=== PATIENT | female | born 1990 | race Caucasian/White ===

== ENCOUNTER → 2016-07-05 | Outpatient (CLI) | payer MEDICAID | LOC: RAD 10:46 | PROVIDERS: ATTEND Physician Assistant | DX: H54.42 Blindness, left eye, normal vision right eye (principal) | CPT/HCPCS: 70553; A9577 ==

== ENCOUNTER 2017-01-29 15:02 | Emergency (ER) | payer OTHER, MEDICAID ==
[2017-01-29] MEDS ORDERED: METOCLOPRAMIDE HCL ORAL SOLN 10 MG/10 ML UDCUP PO ONE (15:20)
[2017-01-29] MEDS ORDERED: MAG HYDROX/AL HYDROX/SIMETH SUSP 30 ML UDCUP PO ONE (15:20)
[2017-01-29] MEDS ORDERED: LIDOCAINE 2% VISCOUS SOLN 20 ML UDCUP PO ONE (15:20)
--- NOTE | 2017-01-29 15:58 | RADIOLOGY REPORT (SQ) ---
EXAM DESCRIPTION: SOFT TISSUE NECK COMPLETED DATE/TIME: 01/29/2017 3:50 pm REASON FOR STUDY: neck pain COMPARISON: None. NUMBER OF VIEWS: Two views. TECHNIQUE: AP and lateral radiographic image of the soft tissues of the neck. LIMITATIONS: None. FINDINGS: EPIGLOTTIS: Normal. Contour normal. Aryepiglottic folds normal. PREVERTEBRAL SOFT TISSUES: Normal. No soft tissue swelling. SUBGLOTTIC AREA: Normal. No narrowing. RETROPHARYNGEAL SPACE: Normal. No soft tissue masses. BONES: No significant findings. LUNG APICES: Normal. OTHER: No radiopaque foreign body. No other significant finding. IMPRESSION: NEGATIVE STUDY OF THE SOFT TISSUES OF THE NECK. TECHNICAL DOCUMENTATION: JOB ID: [id number] [employer]- All Rights Reserved
[2017-01-29 16:57] VITALS: BP 131/84
--- NOTE | 2017-01-29 16:59 | ER Document Report ---
ED General - General Chief Complaint: Neck Problem Stated Complaint: NECK PAIN Time Seen by Provider: 01/29/17 15:20 TRAVEL OUTSIDE OF THE [place] IN LAST 30 DAYS: No - HPI Patient complains to provider of: Neck pain Notes: Patient coming in complaining of neck pain patient states feels like something is trying to check her. Patient otherwise denies any shortness of breath difficulty speaking. Patient denies difficulty swallowing denies eating or swallowing anything that caused her symptoms. Patient states recently got diagnosed with MS concern about possible MS flare. Patient denies fever chills nausea vomiting diarrhea. - Related Data Allergies/Adverse Reactions: acetaminophen [From Percocet] Allergy (Intermediate, Verified 06/17/14 14:47) VOMITING oxycodone HCl [From Percocet] Allergy (Intermediate, Verified 06/17/14 14:47) VOMITING Past Medical History - Social History Smoking Status: Never Smoker Chew tobacco use (# tins/day): No Frequency of alcohol use: None Drug Abuse: None Family History: Reviewed & Not Pertinent - Past Medical History Cardiac Medical History: Reports: Hx Hypertension - With Denies: Hx Coronary Artery Disease, Hx Heart Attack, Hx Heart Murmur Pulmonary Medical History: Denies: Hx Asthma, Hx Bronchitis, Hx COPD, Hx Pneumonia Neurological Medical History: Denies: Hx Cerebrovascular Accident, Hx Seizures Renal/ Medical History: Reports: Hx Ovarian Cysts. Denies: Hx Peritoneal Dialysis GI Medical History: Reports: Hx Gastroesophageal Reflux Disease. Denies: Hx Hiatal Hernia, Hx Ulcer Musculoskeltal Medical History: Denies Hx Arthritis Psychiatric Medical History: Reports: Hx Attention Deficit Hyperactivity Disorder, Hx Bipolar Disorder, Hx Depression Denies: Hx Post Traumatic Stress Disorder, Hx Schizophrenia Infectious Medical History: Denies: Hx HIV Past Surgical History: Reports: Hx Section, Hx Cholecystectomy, Hx Hysterectomy. Denies: Hx Pacemaker - Immunizations Hx Diphtheria, Pertussis, Tetanus Vaccination: Yes - 2011 Review of Systems - Review of Systems Constitutional: No symptoms reported EENT: Other - Neck pain Cardiovascular: No symptoms reported Respiratory: No symptoms reported Gastrointestinal: No symptoms reported Genitourinary: No symptoms reported Female Genitourinary: No symptoms reported Musculoskeletal: No symptoms reported Skin: No symptoms reported Hematologic/Lymphatic: No symptoms reported Neurological/Psychological: No symptoms reported -: Yes All other systems reviewed and negative Physical Exam - Vital signs Vitals: Temp Pulse Resp BP Pulse Ox 98.7 F 80 16 124/86 H 98 01/29/17 15:09 01/29/17 15:09 01/29/17 15:09 01/29/17 15:09 01/29/17 15:09 Interpretation: Normal - General General appearance: Appears well, Alert - HEENT Head: Normocephalic, Atraumatic Eyes: Normal Pupils: PERRL - Respiratory Respiratory status: No respiratory distress Chest status: Nontender Breath sounds: Normal Chest palpation: Normal - Cardiovascular Rhythm: Regular Heart sounds: Normal auscultation Murmur: No - Abdominal Inspection: Normal Distension: No distension Bowel sounds: Normal Tenderness: Nontender Organomegaly: No organomegaly - Back Back: Normal, Nontender - Extremities General upper extremity: Normal inspection, Nontender, Normal color, Normal ROM , Normal temperature General lower extremity: Normal inspection, Nontender, Normal color, Normal ROM , Normal temperature, Normal weight bearing. No: Clari's sign - Neurological Neuro grossly intact: Yes Cognition: Normal Orientation: AAOx4 Prabha Coma Scale Eye Opening: Spontaneous [place] Coma Scale Verbal: Oriented Prabha Coma Scale Motor: Obeys Commands Prabha Coma Scale Total: 15 Speech: Normal Motor strength normal: LUE, RUE, LLE, RLE Sensory: Normal - Psychological Associated symptoms: Normal affect, Normal mood - Skin Skin Temperature: Warm Skin Moisture: Dry Skin Color: Normal Course - Re-evaluation Re-evalutation: 01/29/17 20:25 Minimal relief with GI cocktail. Soft tissue of the neck does not reveal any signs of foreign body. Unclear etiology for the patient's pain patient upon reevaluation does admit to history of GERD and is not on any acid reducing medication will start the patient on Prilosec recommend to try for 1 week see if symptoms resolve patient states understanding patient also states understanding follow-up with your PCP for possible ENT referral. - Vital Signs Vital signs: Temp Pulse Resp BP Pulse Ox 97.8 F 76 20 131/84 H 99 01/29/17 16:47 01/29/17 16:47 01/29/17 16:47 01/29/17 16:47 01/29/17 16:47 Discharge - Discharge Clinical Impression: Globus hystericus Condition: Good Disposition: HOME, SELF-CARE Additional Instructions: At this time your x-ray of her neck does not show any significant pathology. I am concerned that the pain unit may be due to her acid reflux. Please use the omeprazole as directed highly recommend he follow-up with your primary care physician if you are not getting any better in 1 week for possible ENT referral. Prescriptions: Omeprazole 20 mg PO BID #14 tablet. Referrals: DOLORES READ PA-C [Primary Care Provider] - Follow up as needed
== END 2017-01-29 17:03 | disposition home or self-care (01) ==
LOC: ER 15:02
DX: F45.8 Other somatoform disorders (principal); M54.2 Cervicalgia
CPT/HCPCS: 99283; 70360; J3490 ×3

== ENCOUNTER → 2017-04-03 | Outpatient (CLI) | payer MEDICAID ==
--- NOTE | 2017-04-03 11:43 | RADIOLOGY REPORT (SQ) ---
EXAM DESCRIPTION: MRI HEAD COMBO COMPLETED DATE/TIME: 04/03/2017 11:17 am REASON FOR STUDY: MULTIPLE SCLEROSIS G35 MULTIPLE SCLEROSIS COMPARISON: 07/05/2016 TECHNIQUE: Multiplanar imaging includes noncontrasted T1, T2, FLAIR, diffusion with ADC map and post gadolinium contrast T1 sequences. Images stored on PACS. CONTRAST TYPE AND DOSE: 20 mL Multihance. RENAL FUNCTION: None required. The patient is less than 50 years old. LIMITATIONS: None. FINDINGS: Previously described white matter lesions are stable. There is a new lesion measuring abo ut 1 cm just lateral to the left occipital horn. None of the lesions enhance. No involvement of the posterior fossa. No evidence of acute infarct. No hemorrhage or extra-axial fluid collection. Opt ic nerves are normal. IMPRESSION: New quiescent white matter lesion left parietal lobe. No evidence of active demyelinati on. EVIDENCE OF ACUTE STROKE: NO. TECHNICAL DOCUMENTATION: JOB ID: [id number] [employer]- All Rights Reserved
== END ==
LOC: RAD 09:46
PROVIDERS: ATTEND Psychiatry & Neurology Neurology
DX: G35 Multiple sclerosis (principal)
CPT/HCPCS: 70553; A9577

== ENCOUNTER → 2017-04-04 | Outpatient (CLI) | payer MEDICAID ==
--- NOTE | 2017-04-05 13:14 | RADIOLOGY REPORT (SQ) ---
EXAM DESCRIPTION: MRI CERVICAL SPINE WITHOUT COMPLETED DATE/TIME: 04/04/2017 5:46 pm REASON FOR STUDY: MULTIPLE SCLEROSIS G35 MULTIPLE SCLEROSIS COMPARISON: None. TECHNIQUE: Sagittal and Axial imaging includes T1, T2, STIR and gradient echo sequences. LIMITATIONS: None. FINDINGS: ALIGNMENT: Normal. VERTEBRAE: Intact. BONE MARROW: Normal. No marrow replacement or reactive changes. DISCS: Normal. No significant abnormal signal or loss of height. HARDWARE: None in the spine. CORD AND BASE OF BRAIN: Normal in size and signal intensity. SOFT TISSUES: No soft tissue masses. C1-C2: No significant spinal stenosis. C2-C3: No significant spinal stenosis or exit foraminal stenosis. C3-C4: Disc osteophyte complex slightly asymmetric right with mild narrowing of the right exit forami na. C4-C5: None C5-C6: No significant spinal stenosis or exit foraminal stenosis. C6-C7: Disc osteophyte complex with mild narrowing of the exit foramina. C7-T1: No significant spinal stenosis or exit foraminal stenosis. UPPER THORACIC: Incompletely imaged. No significant spinal stenosis or exit foraminal stenosis. OTHER: No other significant finding. IMPRESSION: Mild spondylosis. Mild narrowing of the exit foramina C6-7 and right exit foramina C3-4 . TECHNICAL DOCUMENTATION: JOB ID: [id number] [employer]- All Rights Reserved
== END ==
LOC: RAD 17:00
PROVIDERS: ATTEND Psychiatry & Neurology Neurology
DX: G35 Multiple sclerosis (principal)
CPT/HCPCS: 72141

== ENCOUNTER 2017-04-14 22:05 | Emergency (ER) | payer MEDICAID ==
[2017-04-15] MEDS ORDERED: KETOROLAC TROMETHAMINE 60 MG/2 ML SDV IM ONE (00:17)
[2017-04-15] MEDS ORDERED: METOCLOPRAMIDE HCL 10 MG TABLET PO ONE (00:18)
[2017-04-15] MEDS ORDERED: ONDANSETRON 4 MG TAB.RAPDIS PO ONE (00:18)
--- NOTE | 2017-04-15 00:20 | ER Document Report ---
ED Headache - General Chief Complaint: Headache Stated Complaint: HEADACHE Time Seen by Provider: 04/15/17 00:07 Notes: Patient is a 26-year-old female comes emergency department for chief complaint of a headache that started this morning. She states that she has on Topamax for migraine headaches, she took her Topamax and 400 mg of ibuprofen but she still has a headache. She denies injury, fever, neck stiffness, she states her whole head is throbbing, denies any particular location to the pain, denies visual changes, denies nausea or vomiting. She states she gets intermittent tingling sensations over her body but does not feel any at this time. TRAVEL OUTSIDE OF THE [place] IN LAST 30 DAYS: No - Related Data Allergies/Adverse Reactions: acetaminophen [From Percocet] Allergy (Intermediate, Verified 04/15/17 00:48) VOMITING oxycodone HCl [From Percocet] Allergy (Intermediate, Verified 04/15/17 00:48) VOMITING Past Medical History - General Information source: Patient - Social History Smoking Status: Never Smoker Drug Abuse: None Lives with: Family Family History: Reviewed & Not Pertinent - Past Medical History Cardiac Medical History: Reports: Hx Hypertension - With Denies: Hx Coronary Artery Disease, Hx Heart Attack, Hx Heart Murmur Pulmonary Medical History: Denies: Hx Asthma, Hx Bronchitis, Hx COPD, Hx Pneumonia Neurological Medical History: Denies: Hx Cerebrovascular Accident, Hx Seizures Renal/ Medical History: Reports: Hx Ovarian Cysts. Denies: Hx Peritoneal Dialysis GI Medical History: Reports: Hx Gastroesophageal Reflux Disease. Denies: Hx Hiatal Hernia, Hx Ulcer Musculoskeltal Medical History: Denies Hx Arthritis Psychiatric Medical History: Reports: Hx Attention Deficit Hyperactivity Disorder, Hx Bipolar Disorder, Hx Depression Denies: Hx Post Traumatic Stress Disorder, Hx Schizophrenia Infectious Medical History: Denies: Hx HIV Past Surgical History: Reports: Hx Section, Hx Cholecystectomy, Hx Hysterectomy. Denies: Hx Pacemaker - Immunizations Hx Diphtheria, Pertussis, Tetanus Vaccination: Yes - 2011 Review of Systems - Review of Systems Constitutional: No symptoms reported EENT: No symptoms reported Cardiovascular: No symptoms reported Respiratory: No symptoms reported Gastrointestinal: No symptoms reported Genitourinary: No symptoms reported Female Genitourinary: No symptoms reported Musculoskeletal: No symptoms reported Skin: No symptoms reported Hematologic/Lymphatic: No symptoms reported Neurological/Psychological: See HPI Physical Exam - Vital signs Vitals: Temp Pulse Resp BP Pulse Ox 97.8 F 93 18 132/83 H 99 04/14/17 22:24 04/14/17 22:24 04/14/17 22:24 04/14/17 22:24 04/14/17 22:24 Interpretation: Normal - General General appearance: Appears well, Alert - HEENT Head: Normocephalic, Atraumatic Eyes: Normal Conjunctiva: Normal Extraocular movements intact: Yes Eyelashes: Normal Pupils: PERRL Sinus: Normal Nasal: Normal Mouth/Lips: Normal Mucous membranes: Normal Pharynx: Normal Neck: Normal - Respiratory Respiratory status: No respiratory distress Chest status: Nontender Breath sounds: Normal. No: Decreased air movement Chest palpation: Normal - Cardiovascular Rhythm: Regular Heart sounds: Normal auscultation Murmur: No - Abdominal Inspection: Normal Distension: No distension Bowel sounds: Normal Tenderness: Nontender. No: Tender, Guarding Organomegaly: No organomegaly - Back Back: Normal, Nontender - Extremities General upper extremity: Normal inspection, Nontender, Normal color, Normal ROM , Normal temperature General lower extremity: Normal inspection, Nontender, Normal color, Normal ROM , Normal temperature, Normal weight bearing. No: Clari's sign - Neurological Neuro grossly intact: Yes Cognition: Normal Orientation: AAOx4 Prabha Coma Scale Eye Opening: Spontaneous [place] Coma Scale Verbal: Oriented Prabha Coma Scale Motor: Obeys Commands Prabha Coma Scale Total: 15 Speech: Normal Motor strength normal: LUE, RUE, LLE, RLE Sensory: Normal - Psychological Associated symptoms: Normal affect, Normal mood - Skin Skin Temperature: Warm Skin Moisture: Dry Skin Color: Normal Course - Re-evaluation Re-evalutation: Patient well-appearing, normal neurological exam, very talkative. Unremarkable vital signs. No nuchal rigidity, no fever, no trauma. Patient requests nonsedating approach to medication, states she wants to drive home and she cannot be given anything sedating. She was given Toradol, Reglan, Zofran. On reevaluation patient continues to be well-appearing, she states her headache is gone and she is ready to leave. She has good neurology follow-up. Discharged with return precautions. Patient states understanding and agreement. - Vital Signs Vital signs: Temp Pulse Resp BP Pulse Ox 97.8 F 74 18 124/76 99 04/14/17 22:24 04/15/17 01:44 04/15/17 01:44 04/15/17 01:44 04/14/17 22:24 Discharge - Discharge Clinical Impression: Headache Qualifiers: Headache type: unspecified Headache chronicity pattern: acute headache Intractability: not intractable Qualified Code(s): R51 - Headache Condition: Stable Disposition: HOME, SELF-CARE Additional Instructions: Your symptoms and response to treatment are consistent with a migraine. Stay hydrated, continue current medications, follow up with your Neurologist. Return to the ED for any concerning symptoms - returned headache, vomiting, fever, etc. Referrals: DOLORES READ PA-C [Primary Care Provider] - Follow up as needed
[2017-04-15 01:45] VITALS: BP 124/76
== END 2017-04-15 01:45 | disposition home or self-care (01) ==
LOC: ER 22:05
DX: R51 Headache (principal); I10 Essential (primary) hypertension; Z88.6 Allergy status to analgesic agent; Z90.49 Acquired absence of other specified parts of digestive tract; Z90.710 Acquired absence of both cervix and uterus
CPT/HCPCS: 99283; 96372; J1885; S0119; J3490

== ENCOUNTER → 2017-08-05 | Outpatient (CLI) | payer MEDICAID ==
--- NOTE | 2017-08-05 15:02 | RADIOLOGY REPORT (SQ) ---
EXAM DESCRIPTION: MRI LUMBAR SPINE WITHOUT COMPLETED DATE/TIME: 08/05/2017 10:11 am REASON FOR STUDY: LOW BACK PAIN M54.5 LOW BACK PAIN COMPARISON: CT abdomen pelvis 02/25/2015 TECHNIQUE: Sagittal and Axial imaging includes T1, T2, STIR and gradient echo sequences. Coronal T2/ HASTE imaging. LIMITATIONS: None. FINDINGS: VISUALIZED UPPER ABDOMEN: Limited evaluation. No acute or suspicious findings suggested. SEGMENTATION: No transitional anatomy. The lowest well-developed disc space is labeled L5-S1. ALIGNMENT: Anatomic. VERTEBRAE: Intact. BONE MARROW: Normal. No marrow replacement or reactive changes. DISC SIGNAL: Mild decreased T2 weighted intervertebral disc signal at L5-S1 POSTERIOR ELEMENTS: Generally intact. No pars defect evident. HARDWARE: None in the spine. CORD AND CONUS: Conus is at the T12-L1 level. Along the dorsal and leftward aspect of the spinal canal from the top of T11 through the inferior end plate of T12, a CSF signal cyst is present in the dorsal aspect of the spinal canal, extending out th e left T11-12 and T12-L1 neural foramina. This is extradural extramedullary, mildly displacing the t hecal sac towards the right. There is chronic appearing pressure erosion with thinning of the bilateral T11 lamina and chronic bernice earing widening of the left T11-12 neural foramen. This most likely represents an arachnoid cyst within the spinal canal. These findings are best shown on axial T2 images 2 through 15, and sagittal T2 images 8-12. Prior CT abdomen pelvis from 02/26/20 15 was reviewed. This finding was present at that time, similar appearance. SOFT TISSUES: No aortic aneurysm seen. No bulky retroperitoneal adenopathy or mass. No paraspinal mas s or fluid. T10-11: At the upper most edge of the field of view incompletely included on the scan T11-12: No significant disc protrusion/herniation or right foraminal narrowing. Arachnoid cyst in t he posterior aspect of the spinal canal extending out the left T11-12 neural foramen. T12-L1: No disc protrusion/herniation. No central or right foraminal narrowing. Inferior edge of t he arachnoid cyst in the dorsal spinal canal extends out the left T12-L1 neural foramen. L1-L2: Unremarkable L2-L3: Unremarkable aside from mild facet hypertrophy L3-L4: Unremarkable aside from mild facet hypertrophy L4-L5: Unremarkable aside from mild facet hypertrophy L5-S1: Unremarkable aside from mild facet hypertrophy SACRUM: Visualized upper sacrum intact. OTHER: No other significant findings. IMPRESSION: Incidental finding of an arachnoid cyst in the spinal canal at the T11 and T12 vertebral body levels. Mild multilevel lumbar facet arthropathy without significant central or foraminal encroachment TECHNICAL DOCUMENTATION: JOB ID: [id number] [employer]- All Rights Reserved Reading location - IP/workstation name: [email or web address]
== END ==
LOC: RAD 07-28 15:43
PROVIDERS: ATTEND Physician Assistant
DX: M54.5 Low back pain (principal)
CPT/HCPCS: 72148

== ENCOUNTER → 2018-01-20 | Outpatient (CLI) | payer MEDICAID ==
--- NOTE | 2018-01-21 15:31 | RADIOLOGY REPORT (SQ) ---
EXAM DESCRIPTION: MRI HEAD COMBO COMPLETED DATE/TIME: 01/21/2018 9:40 am REASON FOR STUDY: MULTIPLE SCLEROSIS G35 MULTIPLE SCLEROSIS COMPARISON: 04/03/2017 TECHNIQUE: Multiplanar imaging includes noncontrasted T1, T2, FLAIR, diffusion with ADC map and post gadolinium contrast T1 sequences. Images stored on PACS. CONTRAST TYPE AND DOSE: 10 cc mL Dotarem. RENAL FUNCTION: None required. The patient is less than 50 years old. LIMITATIONS: None. FINDINGS: ANATOMY: No anomalies. Normal vascular flow voids. Pituitary fossa normal. CSF SPACES: Normal in size and contour. No hemorrhage. CEREBRUM: Scattered subcentimeter oval and round foci of increased signal FLAIR sequence in the periv entricular white matter mostly stable. 1 new subcentimeter lesion in the right parietal lobe on imag e 18. None of the lesions enhance. POSTERIOR FOSSA: No signal alteration. No hemorrhage. No edema, masses, or mass effect. Internal ernestina tory canals, cerebellopontine angles, mastoids normal. No enhancing lesions. No abnormal enhancement post contrast. DIFFUSION IMAGING: Negative for acute or subacute infarction. ORBITS: No masses. Globes normal. PARANASAL SINUSES: No fluid levels. Mucosa normal. OTHER: No other significant finding. IMPRESSION: New quiescent white matter lesion in the right parietal lobe. No evidence of active dem yelination. EVIDENCE OF ACUTE STROKE: NO. TECHNICAL DOCUMENTATION: JOB ID: [id number] [employer]- All Rights Reserved Reading location - IP/workstation name: [email or web address]
--- NOTE | 2018-01-21 15:34 | RADIOLOGY REPORT (SQ) ---
EXAM DESCRIPTION: MRI CERVICAL SPINE COMBO COMPLETED DATE/TIME: 01/21/2018 9:40 am REASON FOR STUDY: MULTIPLE SCLEROSIS G35 MULTIPLE SCLEROSIS COMPARISON: None. TECHNIQUE: Sagittal and Axial imaging includes T1, T2, STIR and gradient echo sequences. T1 post ana olinium sequences. CONTRAST TYPE AND DOSE: 15 mL Prohance. RENAL FUNCTION: None required. The patient is less than 50 years old. LIMITATIONS: Excessive motion artifact. Patient declined contrast 01/20/2018 and returned on 01/21/2018 for post-contrast sequences. FINDINGS: Motion artifact limits evaluation. No obvious demyelinating lesions in the cervical spine . No active demyelination. Mild spinal stenosis at C6-7 due to bulging disc. No significant marrow abnormality. IMPRESSION: No evidence of active demyelination. COMMENT: None. TECHNICAL DOCUMENTATION: JOB ID: [id number] [employer]- All Rights Reserved Reading location - IP/workstation name: [email or web address]
== END ==
LOC: RAD 10:15
PROVIDERS: ATTEND Physician Assistant
DX: G35 Multiple sclerosis (principal)
CPT/HCPCS: 70551; 70553; 72141; 72156

== ENCOUNTER → 2018-01-21 | Outpatient (CLI) | payer MEDICAID ==
--- NOTE | 2018-01-22 08:18 | RADIOLOGY REPORT (SQ) ---
EXAM DESCRIPTION: MRI THORACIC SPINE COMBO COMPLETED DATE/TIME: 01/21/2018 9:39 am REASON FOR STUDY: MS G35 MULTIPLE SCLEROSIS COMPARISON: MRI cervical spine 01/20/2018 MRI lumbar spine 08/05/2017 CT abdomen pelvis 02/25/2015 TECHNIQUE: Sagittal and Axial imaging includes T1, T2, STIR and gradient echo sequences. T1 post ga dolinium sequences. CONTRAST TYPE AND DOSE: 15 mL Dotarem. RENAL FUNCTION: None required. The patient is less than 50 years old. LIMITATIONS: None. FINDINGS: A stable benign appearing CSF signal arachnoid cyst is present in the dorsal and leftward aspect of the spinal canal, from the mid T11 level through the T12-L1 level. This cyst measures 6.3 cm craniocaudad by 3 cm transverse by 1.4 cm AP, and may actually be a perineural cyst off the left T 11 nerve root. There is benign bony remodeling of the left lamina of T11 with enlargement of the lef t T11-12 and left T12-L1 neural foramen. Coarse benign-appearing 1 cm calcification along the arachn oid cyst posterior edge. Overall, this is unchanged from CT exam 02/25/2015. On the postcontrast T1 weighted images, there is no abnormal nerve root or conus enhancement. LOCALIZER: No worrisome findings. ALIGNMENT: Normal. VERTEBRAE: Intact. BONE MARROW: Benign hemangioma in the T4 vertebral body. Benign focal fat along the anterior inferio r corner of T6, T7, and T8 HARDWARE: None in the spine. CORD: Tiny focus of increased intrinsic cord signal along signal at the T11 level unchanged from MRI 08/05/2017. No abnormal thoracic cord or conus enhancement SOFT TISSUES: No soft tissue masses. THORACIC DISCS T1-T12: Small posterior disc bulge T7-8 disc, without central or foraminal encroachmen t LOWER CERVICAL: Incompletely imaged. No significant spinal stenosis or exit foraminal stenosis. UPPER LUMBAR: Incompletely imaged. No significant spinal stenosis or exit foraminal stenosis. ENHANCEMENT: No abnormal conus, nerve root, or vertebral body enhancement. OTHER: No other significant finding. IMPRESSION: Stable lower thoracic spinal canal arachnoid cyst from the mid T11 level through the T12 -L1 disc space level. Small central disc bulge at T7-8 without central canal or foraminal encroachment. TECHNICAL DOCUMENTATION: JOB ID: [id number] [employer]- All Rights Reserved Reading location - IP/workstation name: [email or web address]
== END ==
LOC: RAD 08:30
PROVIDERS: ATTEND Physician Assistant
DX: G35 Multiple sclerosis (principal); G93.0 Cerebral cysts
CPT/HCPCS: 72157; A9576

== ENCOUNTER 2018-06-07 09:01 | Emergency (ER) | payer MEDICAID ==
[2018-06-07] MEDS ORDERED: KETOROLAC TROMETHAMINE 60 MG/2 ML SDV IM ONE (09:45)
--- NOTE | 2018-06-07 09:50 | ER Document Report ---
HPI - HPI Time Seen by Provider: 06/07/18 09:36 Pain Level: 5 Notes: Patient is a 27-year-old female with history of MS who presents to the emergency department with bilateral leg pain. Patient reports she is currently being seen at [facility] and is scheduled for nerve conduction test on 06/27/18. Patient reports she takes gabapentin 600 mg at night. She reports that her pain has increased over the last 3-5 days. Patient denies any nausea, vomiting, diarrhea or fever. Patient reports this pain is not any different than previous MS flareups it is just worsening. - CONSTITUTIONAL Constitutional: DENIES: Fever, Chills - REPRODUCTIVE LMP: hysterectomy 2013 Reproductive: DENIES: : - MUSCULOSKELETAL Musculoskeletal: REPORTS: Extremity pain - MS 08/17 Past Medical History - General Information source: Patient - Social History Smoking Status: Never Smoker Chew tobacco use (# tins/day): No Frequency of alcohol use: None Family History: Reviewed & Not Pertinent Patient has suicidal ideation: No Patient has homicidal ideation: No - Past Medical History Cardiac Medical History: Reports: Hx Hypertension - With Denies: Hx Coronary Artery Disease, Hx Heart Attack, Hx Heart Murmur Pulmonary Medical History: Denies: Hx Asthma, Hx Bronchitis, Hx COPD, Hx Pneumonia Neurological Medical History: Denies: Hx Cerebrovascular Accident, Hx Seizures Renal/ Medical History: Reports: Hx Ovarian Cysts. Denies: Hx Peritoneal Dialysis GI Medical History: Reports: Hx Gastroesophageal Reflux Disease. Denies: Hx Hiatal Hernia, Hx Ulcer Musculoskeletal Medical History: Denies Hx Arthritis, Reports Hx Multiple Sclerosis Psychiatric Medical History: Reports: Hx Attention Deficit Hyperactivity D isorder, Hx Bipolar Disorder, Hx Depression Denies: Hx Post Traumatic Stress Disorder, Hx Schizophrenia Infectious Medical History: Denies: Hx HIV Past Surgical History: Reports: Hx Section, Hx Cholecystectomy, Hx Hysterectomy. Denies: Hx Pacemaker - Immunizations Hx Diphtheria, Pertussis, Tetanus Vaccination: Yes - 2011 Vertical Provider Document - CONSTITUTIONAL Notes: PHYSICAL EXAMINATION: GENERAL: Well-appearing, well-nourished and in no acute distress. HEAD: Atraumatic, normocephalic. EYES: Pupils equal round extraocular movements intact, conjunctiva are normal. ENT: Nares patent NECK: Normal range of motion LUNGS: No respiratory distress Musculoskeletal: Normal range of motion NEUROLOGICAL: Normal speech, normal gait. PSYCH: Normal mood, normal affect. SKIN: Warm, Dry, normal turgor, no rashes or lesions noted. - INFECTION CONTROL TRAVEL OUTSIDE OF THE [place] IN LAST 30 DAYS: No Course - Re-evaluation Re-evalutation: Patient reports symptoms of MS flareup. Will give patient IM Toradol and a short course of p.o. Toradol. Patient agreeable to this plan. Discharge - Discharge Clinical Impression: Multiple sclerosis exacerbation Condition: Stable Disposition: HOME, SELF-CARE Additional Instructions: Please take medication as prescribed. Please keep all follow-up appointments with primary care, pain management and your specialty doctors at [facility]. Prescriptions: Ketorolac Tromethamine [Toradol 10 mg Tablet] 10 mg PO Q6HP PRN #20 tablet PRN Reason: Referrals: ELLI HOOK PA-C [NO LOCAL MD] - Follow up as needed
== END 2018-06-07 09:55 | disposition home or self-care (01) ==
LOC: ER 09:01
DX: G35 Multiple sclerosis (principal); Z79.899 Other long term (current) drug therapy
CPT/HCPCS: 99283; 96372; J1885

== ENCOUNTER 2018-07-02 12:08 | Emergency (ER) | payer MEDICAID ==
[2018-07-02] MEDS ORDERED: KETOROLAC TROMETHAMINE 60 MG/2 ML SDV IM ONE (13:14)
--- NOTE | 2018-07-02 13:23 | ER Document Report ---
ED Extremity Problem, Lower - General Chief Complaint: Leg Pain Stated Complaint: LEG AND ARM PAIN Time Seen by Provider: 07/02/18 13:00 Primary Care Provider: DOLORES READ PA-C [Primary Care Provider] - Follow up tomorrow Mode of Arrival: Ambulatory Information source: Patient Notes: 27-year-old female presented to ED for complaint of bilateral leg and arm pain. She has a history of multiple sclerosis and has been on pain management for a long time. She states that she was on gabapentin and it was helping her pain. She states she came into the ED on 07 June and was given Toradol which did help with her pain. She states she followed up with her pain management and they changed her gabapentin to Lyrica and that is still not helping her pain. She states she called her pain management they were not able to see her until next week so she called her primary care doctor and they told her to go to urgent care on Monday. She states urgent care gave her a Toradol injection and told her to follow-up with her primary care doctor and pain management. She states she called pain management and primary care today and they were not able to see her so she called the urgent care and they were rude to her so she came to the emergency room. I have reviewed with patient all of her history and the pain. She did state that the Toradol did help each time and that she was not allowed to take steroids. She states she has not been taking any ibuprofen and that she had some [place] from a dental pain and it did not do any good so she took it to the police department and they got rid of it. TRAVEL OUTSIDE OF THE [place] IN LAST 30 DAYS: No - HPI Patient complains to provider of: Pain. No: Injury Occurred: Other - Chronic Onset/Duration: Persistent Quality of pain: Achy, Sharp Severity: Severe Pain Level: 5 Recent injury: No Associated symptoms: Painful ambulation Exacerbated by: Hanging down, Movement, Walking Relieved by: Nothing - Related Data Allergies/Adverse Reactions: acetaminophen [From Percocet] Allergy (Intermediate, Verified 07/02/18 12:09) VOMITING oxycodone HCl [From Percocet] Allergy (Intermediate, Verified 07/02/18 12:09) VOMITING Past Medical History - General Information source: Patient - Social History Smoking Status: Never Smoker Cigarette use (# per day): No Chew tobacco use (# tins/day): No Smoking Education Provided: No Frequency of alcohol use: None Drug Abuse: None Lives with: Spouse/Significant other - Significant other and children Family History: Reviewed & Not Pertinent Patient has suicidal ideation: No Patient has homicidal ideation: No - Past Medical History Cardiac Medical History: Reports: Hx Hypertension - With Pulmonary Medical History: Reports: None EENT Medical History: Reports: None Neurological Medical History: Reports: Other - Multiple sclerosis Endocrine Medical History: Reports: None Renal/ Medical History: Reports: Hx Ovarian Cysts Malignancy Medical History: Reports: None GI Medical History: Reports: Hx Gastroesophageal Reflux Disease Musculoskeletal Medical History: Reports Hx Multiple Sclerosis Skin Medical History: Reports None Psychiatric Medical History: Reports: Hx Attention Deficit Hyperactivity Disorder, Hx Bipolar Disorder, Hx Depression Traumatic Medical History: Reports: None Infectious Medical History: Reports: None Past Surgical History: Reports: Hx Section, Hx Cholecystectomy, Hx Hysterectomy - Immunizations Hx Diphtheria, Pertussis, Tetanus Vaccination: Yes - 2011 Review of Systems - Review of Systems Constitutional: No symptoms reported EENT: No symptoms reported Cardiovascular: No symptoms reported Respiratory: No symptoms reported Gastrointestinal: No symptoms reported Genitourinary: No symptoms reported Female Genitourinary: No symptoms reported Musculoskeletal: Muscle pain, Muscle stiffness, Other - Pain in both arms and both legs constantly Skin: No symptoms reported Hematologic/Lymphatic: No symptoms reported Neurological/Psychological: No symptoms reported -: Yes All other systems reviewed and negative Physical Exam - Vital signs Vitals: Temp Pulse Resp BP Pulse Ox 98.8 F 90 16 128/83 H 98 07/02/18 12:39 07/02/18 12:39 07/02/18 12:39 07/02/18 12:39 07/02/18 12:39 Interpretation: Normal - General General appearance: Appears well, Alert - HEENT Head: Normocephalic, Atraumatic Eyes: Normal Pupils: PERRL - Respiratory Respiratory status: No respiratory distress Chest status: Nontender Breath sounds: Normal Chest palpation: Normal - Cardiovascular Rhythm: Regular Heart sounds: Normal auscultation Murmur: No - Abdominal Inspection: Normal Distension: No distension Bowel sounds: Normal Tenderness: Nontender Organomegaly: No organomegaly - Back Back: Normal, Nontender - Extremities General upper extremity: Normal inspection, Nontender, Normal color, Normal ROM, Normal temperature. No: Normal strength - Patient states is her normal strength but she does have normal range of motion General lower extremity: Normal inspection, Nontender, Normal color, Normal ROM, Normal temperature, Normal weight bearing. No: Clari's sign - Neurological Neuro grossly intact: Yes Cognition: Normal Orientation: AAOx4 [place] Coma Scale Eye Opening: Spontaneous [place] Coma Scale Verbal: Oriented Prabha Coma Scale Motor: Obeys Commands Prabha Coma Scale Total: 15 Speech: Normal Motor strength normal: LUE, RUE, LLE, RLE Sensory: Normal - Psychological Associated symptoms: Normal affect, Normal mood - Skin Skin Temperature: Warm Skin Moisture: Dry Skin Color: Normal Course - Re-evaluation Re-evalutation: 07/02/18 15:31 Patient was treated with Toradol injection and encouraged to use her ibuprofen this evening and tomorrow morning and to follow-up with her primary care doctor by telephone today and schedule an appointment for tomorrow. I did review with patient the fact that we cannot give narcotics in the emergency room for chronic pain but she stated that she had Peter tried [place] and it did not help anyway. Patient was encouraged to follow-up with her pain management as soon as she can. - Vital Signs Vital signs: Temp Pulse Resp BP Pulse Ox 98.6 F 86 15 126/82 H 100 07/02/18 13:43 07/02/18 13:43 07/02/18 13:43 07/02/18 13:43 07/02/18 13:43 Discharge - Discharge Clinical Impression: Bilateral leg pain, Bilateral arm pain, Multiple sclerosis Chronic pain Qualifiers: Chronic pain type: other chronic pain Qualified Code(s): G89.29 - Other chronic pain Condition: Stable Disposition: HOME, SELF-CARE Additional Instructions: You were seen today for continued pain from your multiple sclerosis to your arms and legs. 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 You state that she did follow-up after your last visit and they changed you from gabapentin to Lyrica and this is not helping your pain. Please take your medications that are ordered by your pain specialist until you can follow-up with them. Toradol Injection You have been given an injection of ketorolac tromethamine (Toradol). This is an excellent, safe drug for pain control. It also has potent antiinflammatory action. You should have significant pain relief within about one hour. Toradol is not addicting and is non-sedating. It does not interfere with driving or work. Call or return if you develop itching, hives, shortness of breath, or rash. You stated that you get a Toradol injection yesterday and this did help your pain. You have been given a Toradol injection today for your pain and given instruction to use your ibuprofen you have at home every 8 hours until you can follow-up with your primary doctor tomorrow. Ibuprofen Ibuprofen is an excellent, safe drug for pain control. In addition, it has potent antiinflammatory effects which are beneficial, especially in the treatment of injuries, arthritis, or tendonitis. It's best to take ibuprofen with food. Persons with ulcer disease or allergy to aspirin should notify their physician of this before taking ibuprofen. Take the medication exactly as prescribed. Don't take additional doses unless instructed to do so by your doctor. If you develop wheezing, shortness of breath, hives, faintness, stomach pain, vomiting, or dark black stools, return for re-evaluation at once. FOLLOW-UP CARE: If you have been referred to a physician for follow-up care, call the physicians office for an appointment as you were instructed or within the next two days. If you experience worsening or a significant change in your symptoms, notify the physician immediately or return to the Emergency Department at any time for re-evaluation. Forms: Elevated Blood Pressure Referrals: DOLORES READ PA-C [Primary Care Provider] - Follow up tomorrow
[2018-07-02 13:48] VITALS: BP 126/82
== END 2018-07-02 13:48 | disposition home or self-care (01) ==
LOC: ER 12:08
DX: G89.29 Other chronic pain (principal); M79.18 Myalgia, other site; Z79.899 Other long term (current) drug therapy; G35 Multiple sclerosis; Z88.6 Allergy status to analgesic agent; Z88.5 Allergy status to narcotic agent
CPT/HCPCS: 99283; 96372; J1885

== ENCOUNTER → 2018-07-06 | Outpatient (CLI) | payer MEDICAID ==
[2018-07-06 09:24] LABS: ABSOLUTE EOSINOPHILS # (AUTO) 0.2 10^3/uL (0.0-0.6); ABSOLUTE LYMPHOCYTES (AUTO) 2.3 10^3/uL (0.5-4.7); ABSOLUTE MONOCYTES (AUTO) 0.5 10^3/uL (0.1-1.4); BASOPHILS % (AUTO) 0.5 % (0-2); HEMATOCRIT 35.4 % (36.0-47.0); HEMOGLOBIN 12.4 g/dL (12.0-15.5); LYMPHOCYTES % (AUTO) 33.1 % (13-45); MEAN CORPUSCULAR HEMOGLOBIN 27.3 pg (27.0-33.4); MEAN CORPUSCULAR HGB CONC 34.9 g/dL (32.0-36.0); MEAN CORPUSCULAR VOLUME 78 fl (80-97); MONOCYTES % (AUTO) 7.4 % (3-13); PLATELET COUNT 308 10^3/uL (150-450); RED BLOOD COUNT 4.53 10^6/uL (3.72-5.28); RED CELL DISTRIBUTION WIDTH 13.7 % (11.5-14.0); TOTAL CELLS COUNTED % (AUTO) 100 %; WHITE BLOOD COUNT 7.1 10^3/uL (4.0-10.5)
[2018-07-06 09:47] LABS: ALANINE AMINOTRANSFERASE 18 U/L (9-52); ALBUMIN 4.7 g/dL (3.5-5.0); ALKALINE PHOSPHATASE 64 U/L (38-126); ANION GAP 8 (5-19); ASPARTATE AMINO TRANSFERASE 22 U/L (14-36); BILIRUBIN,DIRECT 0.3 mg/dL (0.0-0.4); BILIRUBIN,TOTAL 0.4 mg/dL (0.2-1.3); BLOOD UREA NITROGEN 13 mg/dL (7-20); CALCIUM 9.6 mg/dL (8.4-10.2); CARBON DIOXIDE 29 mmol/L (22-30); CHLORIDE 104 mmol/L (98-107); CHOLESTEROL 232.48 mg/dL (0-200); GLUCOSE 93 mg/dL (75-110); POTASSIUM 4.7 mmol/L (3.6-5.0); TOTAL PROTEIN 7.3 g/dL (6.3-8.2); TRIGLYCERIDES 201 mg/dL (<150)
[2018-07-06 09:58] LABS: DIRECT LDL 169 mg/dL (<100)
[2018-07-06 10:02] LABS: FREE T4 (FREE THYROXINE) 1.13 ng/dL (0.78-2.19)
[2018-07-06 10:03] LABS: VLDL CHOLESTEROL 40.2 mg/dL (10-31)
[2018-07-06 10:16] LABS: THYROID STIMULATING HORMONE 1.85 uIU/mL (0.47-4.68)
== END ==
LOC: OD 08:35
PROVIDERS: ATTEND Nurse Practitioner Psychiatric/Mental Health
DX: Z79.899 Other long term (current) drug therapy (principal); F41.1 Generalized anxiety disorder
CPT/HCPCS: 36415; 80053; 80061; 83036; 84439; 84443; 85025

== ENCOUNTER 2019-02-12 15:36 | Emergency (ER) | payer MEDICAID ==
[2019-02-12 15:51] VITALS: BP 124/76
[2019-02-12] MEDS ORDERED: KETOROLAC TROMETHAMINE 60 MG/2 ML SDV IM ONE (16:18)
--- NOTE | 2019-02-12 16:24 | ER Document Report ---
HPI - HPI Patient complains to provider of: Joint pain left side history MS Time Seen by Provider: 02/12/19 16:15 Onset: Last week Onset/Duration: Intermittent Quality of pain: Achy, Sharp Severity: Moderate Pain Level: 3 Context: 28-year-old female presents to ED for joint muscle pain from her MS. She states her current left side of her body. She states that she gets Medicare at home but sometimes it is not time for her shot and flu. Gets pain and she needs Toradol shot. She states she cannot have steroids because it will interfere w ith her MS shot. She states she has been treated like she was taking narcotics but has not which she states that she just needs relief from the pain. I explained to her that I could not give her narcotics but I could give her the Toradol injection if that would help. She stated yes that would help. Associated Symptoms: Other Exacerbated by: Movement Relieved by: Denies Similar symptoms previously: Yes Recently seen / treated by doctor: Yes - ROS ROS below otherwise negative: Yes - CONSTITUTIONAL Constitutional: DENIES: Fever, Chills - EENT EENT: DENIES: Sore Throat, Ear Pain, Nasal Drainage-Clear, Nasal Drainage- Purulent, Congestion, Eye problems - NEURO Neurology: DENIES: Headache, Weakness, Vision blurred, Dizzinesss / Vertigo - CARDIOVASCULAR Cardiovascular: DENIES: Chest pain - RESPIRATORY Respiratory: DENIES: Trouble Breathing, Coughing - GASTROINTESTINAL Gastrointestinal: DENIES: Abdominal Pain, Nausea, Patient vomiting, Diarrhea, Constipation, Black / Bloody Stools - URINARY Urinary: DENIES: Dysuria, Urgency, Frequency - REPRODUCTIVE Reproductive: DENIES: :, Postmenopausal, Abnormal bleeding / discharge - MUSCULOSKELETAL Musculoskeletal: REPORTS: Extremity pain, Back Pain, Neck Pain, Swelling Notes: Joint pain and muscle pain on the left side from her multiple sclerosis - DERM Skin Color: Normal Skin Problems: None Past Medical History - General Information source: Patient - Social History Smoking Status: Unknown if Ever Smoked Frequency of alcohol use: None Drug Abuse: None Lives with: Family Family History: Reviewed & Not Pertinent Patient has suicidal ideation: No Patient has homicidal ideation: No - Past Medical History Cardiac Medical History: Reports: Hx Hypertension - With Pulmonary Medical History: Reports: None EENT Medical History: Reports: None Neurological Medical History: Reports: None Renal/ Medical History: Reports: Hx Ovarian Cysts Malignancy Medical History: Reports: None GI Medical History: Reports: Hx Gastroesophageal Reflux Disease Musculoskeletal Medical History: Reports Hx Multiple Sclerosis, Reports Hx Musculoskeletal Trauma Skin Medical History: Reports None Psychiatric Medical History: Reports: Hx Attention Deficit Hyperactivity Disorder, Hx Bipolar Disorder, Hx Depression Traumatic Medical History: Reports: None Infectious Medical History: Reports: None Past Surgical History: Reports: Hx Section, Hx Cholecystectomy, Hx Hysterectomy - Immunizations Hx Diphtheria, Pertussis, Tetanus Vaccination: Yes - 2012 Vertical Provider Document - CONSTITUTIONAL Agree With Documented VS: Yes Exam Limitations: No Limitations General Appearance: WD/WN, No Apparent Distress - INFECTION CONTROL TRAVEL OUTSIDE OF THE [place] IN LAST 30 DAYS: No - HEENT HEENT: Atraumatic, Normal ENT Exam, Normocephalic, PERRLA - NECK Neck: Normal Inspection, Supple - RESPIRATORY Respiratory: Breath Sounds Normal, No Respiratory Distress, Chest Non-Tender - CARDIOVASCULAR Cardiovascular: Regular Rate, Regular Rhythm - GI/ABDOMEN Gastrointestinal: Abdomen Soft, Abdomen Non-Tender, No Organomegaly, Normal Bowel Sounds - BACK Back: Normal Inspection - MUSCULOSKELETAL/EXTREMETIES Musculoskeletal/Extremeties: MAEW, FROM, Non-Tender - NEURO Level of Consciousness: Awake, Alert, Appropriate Motor/Sensory: No Motor Deficit, Positive Babinski's Sign - DERM Integumentary: Warm, Dry, No Rash Course - Re-evaluation Re-evalutation: 02/12/19 16:29 Patient has a history of multiple sclerosis and has medication she takes for the multiple sclerosis but in between shots sometimes she needs some pain medicines. She states she is on a nerve pain medicine and takes shots for the multiple sclerosis but sometimes she needs Toradol. She states she came today to get the Toradol shot. - Vital Signs Vital signs: Temp Pulse Resp BP Pulse Ox 98.1 F 88 18 124/76 99 02/12/19 15:48 02/12/19 15:48 02/12/19 15:48 02/12/19 15:48 02/12/19 15:48 Discharge - Discharge Clinical Impression: Joint pain due to MS Condition: Stable Disposition: HOME, SELF-CARE Additional Instructions: Arthralgia Arthralgia is pain in the joints. We use the word arthralgia to describe joint pain where there's no history of injury, no known joint disease, and the joints are normal to examination. Arthralgia can be a symptom of an acute illness, such as influenza, hepatitis, or serum sickness. Sometimes the joint pain comes before any other symptoms. Arthralgia can also be an early symptom of joint disease, such as rheumatoid arthritis or lupus. If arthralgia is accompanied by an acute illness that explains the joint pain, such as mononucleosis, no further testing needs to be done. When there's no clear reason for the pain, tests may be done to see if there's an inflammatory disease of the joints. The usual treatment is anti-inflammatory medication, such as ibuprofen. Joint aches can be soothed with a heating pad or hot compress. If joints remain painful more than a few days, you'll need testing and followup. Return if a joint becomes swollen, red, or severely painful. Myalagia (Muscle Pain) Myalgia is pain in the muscles. We use the word myalgia to describe muscle pain where there's no history of injury, no known muscle disease, and the muscles are normal to examination. Myalgias can be a symptom of an acute illness, such as influenza, hepatitis, or any viral illness, especially with fever. Sometimes the muscle pain comes before any other symptoms. Myalgia can also be an early symptom of inflammatory muscle disease, such as lupus. If myalgia is accompanied by an acute illness that explains the muscle pain, then no further testing needs to be done. When there's no clear reason for the pain, tests may be done to see if there's an inflammatory or other disease of the muscles. The usual treatment for myalgias is anti-inflammatory medication, such as ibuprofen. Muscle aches may be soothed with a heating pad or hot compress. If muscles remain painful for more than a few days, you'll need testing and followup. Return if a muscle becomes swollen, red, or severely painful. Toradol Injection You have been given an injection of ketorolac tromethamine (Toradol). This is an excellent, safe drug for pain control. It also has potent antiinflammatory action. You should have significant pain relief within about one hour. Toradol is not addicting and is non-sedating. It does not interfere with driving or work. Call or return if you develop itching, hives, shortness of breath, or rash. FOLLOW-UP CARE: If you have been referred to a physician for follow-up care, call the physicians office for an appointment as you were instructed or within the next two days. If you experience worsening or a significant change in your symptoms, notify the physician immediately or return to the Emergency Department at any time for re-evaluation. Referrals: HADLEY COVINGTON NP [NO LOCAL MD] - Follow up in 3-5 days
== END 2019-02-12 16:38 | disposition home or self-care (01) ==
LOC: ER 15:36
DX: G35 Multiple sclerosis (principal); Z79.899 Other long term (current) drug therapy; M25.50 Pain in unspecified joint; M79.10 Myalgia, unspecified site; M54.9 Dorsalgia, unspecified; M54.2 Cervicalgia; R60.9 Edema, unspecified
CPT/HCPCS: J1885

== ENCOUNTER → 2019-03-13 | Outpatient (CLI) | payer MEDICAID ==
--- NOTE | 2019-03-13 13:01 | EKG REPORT ---
SEVERITY:- NORMAL ECG - SINUS RHYTHM : Confirmed by: Gus Dumas MD 13-Mar-2019 13:00:38
== END ==
LOC: OD 08:59
PROVIDERS: ATTEND Nurse Practitioner Family
DX: R00.2 Palpitations (principal)
CPT/HCPCS: 93005; 93010

== ENCOUNTER 2019-06-14 11:18 | Emergency (ER) | payer MEDICAID | END 2019-06-14 12:45 | disposition left against medical advice (07) | LOC: ER 11:18 | DX: Z53.20 Procedure and treatment not carried out because of patient's decision for unspecified reasons (principal) ==

== ENCOUNTER → 2019-06-14 | Outpatient (CLI) | payer MEDICAID ==
[2019-06-14 08:26] LABS: ABSOLUTE EOSINOPHILS # (AUTO) 0.1 10^3/uL (0.0-0.6); ABSOLUTE LYMPHOCYTES (AUTO) 1.5 10^3/uL (0.5-4.7); ABSOLUTE MONOCYTES (AUTO) 0.4 10^3/uL (0.1-1.4); ABSOLUTE NEUT (AUTO) 2.9 10^3/uL (1.7-8.2); BASOPHILS % (AUTO) 0.9 % (0-2); EOSINOPHILS % (AUTO) 2.9 % (0-6); HEMATOCRIT 35.6 % (36.0-47.0); HEMOGLOBIN 12.4 g/dL (12.0-15.5); LYMPHOCYTES % (AUTO) 30.3 % (13-45); MEAN CORPUSCULAR HEMOGLOBIN 26.3 pg (27.0-33.4); MEAN CORPUSCULAR HGB CONC 34.7 g/dL (32.0-36.0); MEAN CORPUSCULAR VOLUME 76 fl (80-97); MONOCYTES % (AUTO) 7.3 % (3-13); PLATELET COUNT 344 10^3/uL (150-450); RED CELL DISTRIBUTION WIDTH 15.3 % (11.5-14.0); SEGMENTED NEUTROPHILS % (AUTO) 58.6 % (42-78); TOTAL CELLS COUNTED % (AUTO) 100 %; WHITE BLOOD COUNT 4.9 10^3/uL (4.0-10.5)
[2019-06-14 08:50] LABS: ALBUMIN 4.5 g/dL (3.5-5.0); ALKALINE PHOSPHATASE 69 U/L (38-126); ANION GAP 10 (5-19); ASPARTATE AMINO TRANSFERASE 25 U/L (14-36); BILIRUBIN,DIRECT 0.4 mg/dL (0.0-0.4); BILIRUBIN,TOTAL 0.5 mg/dL (0.2-1.3); BLOOD UREA NITROGEN 10 mg/dL (7-20); CALCIUM 9.8 mg/dL (8.4-10.2); CARBON DIOXIDE 28 mmol/L (22-30); CHLORIDE 103 mmol/L (98-107); CHOLESTEROL 182.95 mg/dL (0-200); GLUCOSE 102 mg/dL (75-110); POTASSIUM 4.7 mmol/L (3.6-5.0); TOTAL PROTEIN 7.5 g/dL (6.3-8.2); TRIGLYCERIDES 230 mg/dL (<150)
[2019-06-14 09:01] LABS: DIRECT LDL 138 mg/dL (<100)
[2019-06-14 09:03] LABS: FREE T4 (FREE THYROXINE) 1.02 ng/dL (0.78-2.19)
[2019-06-14 09:17] LABS: THYROID STIMULATING HORMONE 1.33 uIU/mL (0.47-4.68)
== END ==
LOC: OD 07:03
PROVIDERS: ATTEND Nurse Practitioner Psychiatric/Mental Health
DX: F41.1 Generalized anxiety disorder (principal); Z79.899 Other long term (current) drug therapy
CPT/HCPCS: 36415; 80053; 80061; 83036; 83525; 84439; 84443; 85025

== ENCOUNTER → 2019-06-18 | Outpatient (CLI) | payer MEDICAID ==
--- NOTE | 2019-06-18 16:24 | EKG REPORT ---
SEVERITY:- ABNORMAL ECG - SINUS TACHYCARDIA BORDERLINE Q WAVES IN INFERIOR LEADS INFERIOR Q WAVES, PROBABLY NORMAL VARIATION BORDERLINE T ABNORMALITIES, ANTERIOR LEADS : Confirmed by: Bridget Zepeda MD 18-Jun-2019 16:24:00
== END ==
LOC: OD 11:51
PROVIDERS: ATTEND Nurse Practitioner Family
DX: R55 Syncope and collapse (principal)
CPT/HCPCS: 93005; 93010

== ENCOUNTER → 2019-06-21 | Outpatient (CLI) | payer MEDICAID ==
[2019-06-21 14:15] LABS: A TYPE INFLUENZA AG NEGATIVE (NEGATIVE); B INFLUENZA AG NEGATIVE (NEGATIVE)
== END ==
LOC: OD 13:32
PROVIDERS: ATTEND Nurse Practitioner Family
DX: R50.9 Fever, unspecified (principal)
CPT/HCPCS: 87804

== ENCOUNTER → 2019-11-04 | Outpatient (CLI) | payer MEDICAID ==
[2019-11-04 16:38] LABS: IRON(TIBC) 52.8 ug/dL (37-170)
== END ==
LOC: OD 14:51
DX: G25.81 Restless legs syndrome (principal)
CPT/HCPCS: 36415; 82728; 83540; 83550

== ENCOUNTER 2020-01-10 13:10 | Emergency (ER) | payer MEDICAID ==
[2020-01-10 13:28] VITALS: BP 124/78
--- NOTE | 2020-01-10 13:34 | ER Document Report ---
ED Medical Screen (RME) - General Chief Complaint: Chest Pain Stated Complaint: CHEST PAIN Time Seen by Provider: 01/10/20 13:26 Primary Care Provider: KARISSA MELENDEZ [Primary Care Provider] - Follow up as needed Information source: Patient Notes: Patient presents complaining of midsternal chest pain that she describes as sharp and worse with exertion. Patient states she has been having the pain for the past week although it has started to worsen. Patient does complain of some lightheadedness. Patient denies any cough or cold symptoms. No nausea vomiting or diarrhea. Patient states she does have MS although this is not symptoms typical of her MS flares. Patient denies any history of PE or DVT. I have greeted and performed a rapid initial assessment of this patient. A comprehensive ED assessment and evaluation of the patient, analysis of test results and completion of the medical decision making process will be conducted by additional ED providers. TRAVEL OUTSIDE OF THE [place] IN LAST 30 DAYS: No - Related Data Allergies/Adverse Reactions: acetaminophen [From Percocet] Allergy (Intermediate, Verified 07/02/18 12:09) VOMITING oxycodone HCl [From Percocet] Allergy (Intermediate, Verified 07/02/18 12:09) VOMITING Past Medical History - Past Medical History Cardiac Medical History: Reports: Hx Hypertension - With Denies: Hx Coronary Artery Disease, Hx Heart Attack, Hx Heart Murmur Pulmonary Medical History: Denies: Hx Asthma, Hx Bronchitis, Hx COPD, Hx Pneumonia Neurological Medical History: Denies: Hx Cerebrovascular Accident, Hx Seizures Renal/ Medical History: Reports: Hx Ovarian Cysts. Denies: Hx Peritoneal Dialysis GI Medical History: Reports: Hx Gastroesophageal Reflux Disease. Denies: Hx Hiatal Hernia, Hx Ulcer Musculoskeltal Medical History: Denies Hx Arthritis, Reports Hx Multiple Sclerosis, Reports Hx Musculoskeletal Trauma Psychiatric Medical History: Reports: Hx Attention Deficit Hyperactivity Disorder, Hx Bipolar Disorder, Hx Depression Denies: Hx Post Traumatic Stress Disorder, Hx Schizophrenia Infectious Medical History: Denies: Hx HIV Past Surgical History: Reports: Hx Section, Hx Cholecystectomy, Hx Hysterectomy. Denies: Hx Pacemaker - Immunizations Hx Diphtheria, Pertussis, Tetanus Vaccination: Yes - 2011 Physical Exam - Vital signs Vitals: Temp Pulse Resp BP Pulse Ox 98.1 F 79 18 124/78 98 01/10/20 13:26 01/10/20 13:26 01/10/20 13:26 01/10/20 13:01/10/20 13:26 - Respiratory Respiratory status: No respiratory distress Chest status: Nontender Breath sounds: Normal - Cardiovascular Rhythm: Regular Heart sounds: S1 appreciated, S2 appreciated Course - Vital Signs Vital signs: Temp Pulse Resp BP Pulse Ox 98.1 F 79 18 124/78 98 01/10/20 13:26 01/10/20 13:01/10/20 13:01/10/20 13:01/10/20 13:26 Doctor's Discharge - Discharge Referrals: LOCALMD,NO [Primary Care Provider] - Follow up as needed
[2020-01-10 14:09] LABS: ABSOLUTE EOSINOPHILS # (AUTO) 0.2 10^3/uL (0.0-0.6); ABSOLUTE LYMPHOCYTES (AUTO) 1.2 10^3/uL (0.5-4.7); ABSOLUTE MONOCYTES (AUTO) 0.4 10^3/uL (0.1-1.4); EOSINOPHILS % (AUTO) 3.5 % (0-6); HEMATOCRIT 35.4 % (36.0-47.0); LYMPHOCYTES % (AUTO) 24.6 % (13-45); MEAN CORPUSCULAR HEMOGLOBIN 26.5 pg (27.0-33.4); MEAN CORPUSCULAR VOLUME 78 fl (80-97); MONOCYTES % (AUTO) 9.1 % (3-13); PLATELET COUNT 299 10^3/uL (150-450); RED BLOOD COUNT 4.54 10^6/uL (3.72-5.28); RED CELL DISTRIBUTION WIDTH 14.9 % (11.5-14.0); SEGMENTED NEUTROPHILS % (AUTO) 61.8 % (42-78); TOTAL CELLS COUNTED % (AUTO) 100 %; WHITE BLOOD COUNT 4.8 10^3/uL (4.0-10.5)
--- NOTE | 2020-01-10 14:19 | RADIOLOGY REPORT (SQ) ---
EXAM DESCRIPTION: CHEST SINGLE VIEW IMAGES COMPLETED DATE/TIME: 01/10/2020 2:10 pm REASON FOR STUDY: cp COMPARISON: None. EXAM PARAMETERS: NUMBER OF VIEWS: One view. TECHNIQUE: An AP view of the chest was obtained. RADIATION DOSE: NA LIMITATIONS: None. FINDINGS: LUNGS AND PLEURA: No consolidation, pleural effusion or pneumothorax. MEDIASTINUM AND HILAR STRUCTURES: No mediastinal or hilar contour abnormality. HEART AND VASCULAR STRUCTURES: The cardiac silhouette and pulmonary vasculature are within normal begum its. BONES: No acute findings. HARDWARE: None in the chest. OTHER: No other finding. IMPRESSION: No acute cardiopulmonary process. TECHNICAL DOCUMENTATION: JOB ID: [id number] 2010 [employer]- All Rights Reserved Reading location - IP/workstation name: [email or web address]
[2020-01-10 14:30] LABS: ALBUMIN 4.5 g/dL (3.5-5.0); ALKALINE PHOSPHATASE 67 U/L (38-126); ANION GAP 9 (5-19); ASPARTATE AMINO TRANSFERASE 28 U/L (14-36); BILIRUBIN,DIRECT 0.2 mg/dL (0.0-0.4); BILIRUBIN,TOTAL 0.4 mg/dL (0.2-1.3); BLOOD UREA NITROGEN 6 mg/dL (7-20); CALCIUM 9.8 mg/dL (8.4-10.2); CARBON DIOXIDE 31 mmol/L (22-30); CHLORIDE 101 mmol/L (98-107); CREATINE KINASE 122 U/L (30-135); GLUCOSE 96 mg/dL (75-110); POTASSIUM 4.8 mmol/L (3.6-5.0)
--- NOTE | 2020-01-10 18:18 | ER Document Report ---
ED General - General Chief Complaint: Chest Pain Stated Complaint: CHEST PAIN Time Seen by Provider: 01/10/20 13:26 Primary Care Provider: KARISSA MELENDEZ [NO LOCAL MD] - Follow up as needed TRAVEL OUTSIDE OF THE [place] IN LAST 30 DAYS: No - HPI Notes: Chief complaint: Chest pain History of present illness: 29-year-old female with history of chronic pain syndrome and multiple sclerosis on multiple medications presents today com plaining of 4 to 5-day history of intermittent sharp nonradiating anterior central chest pain aggravated by movement and touching the area. No dyspnea. No hemoptysis. No fever, chills or sputum production. 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 She is recently establish care with a pain management clinic although they are currently not giving her any narcotic medications. She denies any known history of thromboembolic disease and there is no history of this in her family. She is not diabetic. She is not hypertensive. She is a non-smoker. She has no history of hyperlipidemia. She denies any use cocaine. Family history is negative for CAD. HEART Score: HISTORY 0 ECG 0 AGE 0 RISK FACTORS 0 TROPONIN 0 TOTAL:0 If HEART score is < 3 AND both tronponin measurments are normal, the 30 day risk of a major adverse cardiac event (all-cause mortality, myocardia infarction or need for coronary revscularization) is < 1% (Sensitivity 100%, NPV 100%). Review of past records here shows that she has had many visits for wide variety of pain complaints. - Related Data Allergies/Adverse Reactions: acetaminophen [From Percocet] Allergy (Intermediate, Verified 07/02/18 12:09) VOMITING oxycodone HCl [From Percocet] Allergy (Intermediate, Verified 07/02/18 12:09) VOMITING Past Medical History - General Information source: Patient, [facility] Records - Social History Smoking Status: Former Smoker Chew tobacco use (# tins/day): No Frequency of alcohol use: None Drug Abuse: None Family History: Reviewed & Not Pertinent - Past Medical History Cardiac Medical History: Denies: Hx Coronary Artery Disease, Hx DVT, Hx Heart Attack, Hx Hypertension, Hx Pulmonary Embolism, Hx Heart Murmur Pulmonary Medical History: Denies: Hx Asthma, Hx Bronchitis, Hx COPD, Hx Pneumonia Neurological Medical History: Denies: Hx Cerebrovascular Accident, Hx Seizures Renal/ Medical History: Reports: Hx Ovarian Cysts. Denies: Hx Peritoneal Rosita lysis GI Medical History: Reports: Hx Gastroesophageal Reflux Disease. Denies: Hx Hiatal Hernia, Hx Ulcer Musculoskeletal Medical History: Denies Hx Arthritis, Reports Hx Multiple Sclerosis, Reports Hx Musculoskeletal Trauma Psychiatric Medical History: Reports: Hx Attention Deficit Hyperactivity Disorder, Hx Bipolar Disorder, Hx Depression Denies: Hx Post Traumatic Stress Disorder, Hx Schizophrenia Infectious Medical History: Denies: Hx HIV Past Surgical History: Reports: Hx Section, Hx Cholecystectomy, Hx Hysterectomy. Denies: Hx Pacemaker - Immunizations Hx Diphtheria, Pertussis, Tetanus Vaccination: Yes - 2011 Review of Systems - Review of Systems Notes: Constitutional: Negative for fever. HENT: Negative for sore throat. Eyes: Negative for visual changes. Cardiovascular: As per HPI. Respiratory: Negative for shortness of breath. Gastrointestinal: Negative for abdominal pain, vomiting or diarrhea. Genitourinary: Negative for dysuria. Musculoskeletal: Chronic back pain. Skin: Negative for rash. Neurological: Negative for headaches, weakness or numbness. 10 point ROS negative except as marked above and in HPI. Physical Exam - Vital signs Vitals: Temp Pulse Resp BP Pulse Ox 98.1 F 79 18 124/78 98 01/10/20 13:26 01/10/20 13:26 01/10/20 13:26 01/10/20 13:26 01/10/20 13:26 - Notes Notes: GENERAL: Moderately obese female approximately stated age appearing in no acute distress. SKIN: Good turgor no rashes. HEAD: Normocephalic atraumatic. EYES: PERRLA. EOMI. Conjunctivae and sclerae clear. EARS: CANALS AND TMS CLEAR. NOSE: CLEAR. MOUTH: Moist mucosa. Good dentition. No stridor or edema. No drooling. NECK: Supple. No masses or thyromegaly. No adenopathy. Carotids 2+ without bruits. No JVD. BACK: Symmetrical without tenderness. CHEST: Exquisite tenderness of anterior chest along costochondral junctions bilaterally which exactly reproduces her symptoms. Respirations unlabored. Breath sounds clear and symmetrical. HEART: Regular rhythm. No murmur gallop or rub. ABDOMEN: Soft nontender without masses, organomegaly or rebound. Bowel sounds normally active. No bruits. GENITALIA: Deferred. EXTREMITIES: No edema. No calf tenderness. Cap refill less than 1.5 seconds. Dorsalis pedis and posterior tibial pulses 3+ and symmetrical. NEUROLOGICAL: GCS 15. Alert and oriented x3. Normal gait. Fluent speech. Cranial nerves II through XII intact. Sensorimotor and cerebellar normal. Normal tone. PSYCHIATRIC: Flat affect. Course - Re-evaluation Re-evalutation: 01/10/20 18:19 This appears to be chest wall pain. I am comfortable discharging patient for outpatient follow-up with her primary care physician. Findings, clinical impression and plan of treatment have been discussed with patient/family. Understanding of current findings and recommendations has been acknowledged by them and there is agreement regarding disposition and follow-up. - Vital Signs Vital signs: Temp Pulse Resp BP Pulse Ox 98.1 F 79 18 124/78 98 01/10/20 13:26 01/10/20 13:26 01/10/20 13:26 01/10/20 13:26 01/10/20 13:26 - Laboratory Result Diagrams: 01/10/20 13:59 01/10/20 13:59 Laboratory results interpreted by me: 01/10/20 01/10/20 13:59 13:59 Hct 35.4 L MCV 78 L MCH 26.5 L RDW 14.9 H Carbon Dioxide 31 H BUN 6 L ALT 36 H - Diagnostic Test Radiology reviewed: Reports reviewed - Chest x-ray per radiologist: No active disease - EKG Interpretation by Me Additional EKG results interpreted by me: 01/10/20 18:18 Twelve-lead EKG from 1320 hrs. reviewed by me contemporaneously showing normal sinus rhythm with a rate of 75 and a QRS axis of +4 degrees and normal intervals. No acute ST or T wave changes are present. There is no significant interval change compared with prior study of 06/18/2019. Interpretation normal EKG. Indication for current study: Chest pain. Discharge - Discharge Clinical Impression: Chest wall pain Condition: Stable Disposition: HOME, SELF-CARE Additional Instructions: Continue current medications. Tylenol as needed. Return here as needed for new or worsening symptoms: Pain that is worsening or unimproved Increasing shortness of breath Vomiting blood Uncontrolled vomiting High fever or shaking chills Overall worsening Referrals: LOCALMD,NO [NO LOCAL MD] - Follow up as needed [facility] [Provider Group] - Follow up as needed
--- NOTE | 2020-01-10 23:37 | EKG REPORT ---
SEVERITY:- BORDERLINE ECG - SINUS RHYTHM BORDERLINE T ABNORMALITIES, ANTERIOR LEADS : Confirmed by: Bridget Zepeda MD 10-Jan-2020 23:36:31
== END 2020-01-10 18:53 | disposition home or self-care (01) ==
LOC: ER 13:10
DX: R07.89 Other chest pain (principal); I34.0 Nonrheumatic mitral (valve) insufficiency; E66.9 Obesity, unspecified; G35 Multiple sclerosis; M54.9 Dorsalgia, unspecified; G89.4 Chronic pain syndrome; Z79.899 Other long term (current) drug therapy; Z87.891 Personal history of nicotine dependence; Z88.8 Allergy status to other drugs, medicaments and biological substances; Z88.6 Allergy status to analgesic agent; Z88.5 Allergy status to narcotic agent
CPT/HCPCS: 36415; 71045; 80053; 82550; 83735; 84484; 85025; 93005; 93010; 99285

== ENCOUNTER → 2020-02-05 | Outpatient (CLI) | payer MEDICAID ==
--- NOTE | 2020-02-06 13:13 | RADIOLOGY REPORT (SQ) ---
EXAM DESCRIPTION: U/S THYROID/SFT TISS HD NECK IMAGES COMPLETED DATE/TIME: 02/05/2020 5:26 pm REASON FOR STUDY: (E07.89)OTHER SPECIFIED DISORDERS OF THYROID E07.89 OTHER SPECIFIED DISORDERS OF THYROID COMPARISON: None. TECHNIQUE: Dynamic and static sorensen-scale images acquired of the thyroid gland. Selected additional c olor/power Doppler images recorded. All images stored to PACS. LIMITATIONS: None. FINDINGS: RIGHT LOBE: Normal size, 4.8 cm Homogeneous echotexture. No cystic or solid masses. LEFT LOBE: Normal size, 4.9 cm Homogeneous echotexture. No cystic or solid masses. ISTHMUS: Slightly prominent, 6 mm PE Homogeneous echotexture. No cystic or solid masses. OTHER: There 2 submandibular lymph nodes on the left. The larger measures 14 mm in largest diameter. These have normal fatty karen. IMPRESSION: Normal thyroid gland. There are 2 submandibular lymph nodes with benign appearance. TECHNICAL DOCUMENTATION: JOB ID: [id number] 2010 [employer]- All Rights Reserved Reading location - IP/workstation name: [email or web address]
== END ==
LOC: RAD 16:23
PROVIDERS: ATTEND Physician Assistant
DX: E07.89 Other specified disorders of thyroid (principal)
CPT/HCPCS: 76536

== ENCOUNTER 2020-03-05 11:54 | Emergency (ER) | payer MEDICAID ==
--- NOTE | 2020-03-05 12:14 | ER Document Report ---
ED Medical Screen (RME) - General Chief Complaint: Shortness Of Breath Stated Complaint: SHORTNESS OF BREATH/CHILLS/FEVERISH/TIRED Time Seen by Provider: 03/05/20 12:05 Primary Care Provider: DOLORES READ PA-C [Primary Care Provider] - Follow up as needed Mode of Arrival: Ambulatory Information source: Patient Notes: 29-year-old female with history of anxiety and MS presenting to the emergency department with chief complaint of cough x1 week, congestion x2 weeks, shortness of breath over the last 2 days with increased work of breathing. She reports associated chills and nausea. Generalized weakness. She is not very forthcoming with information. Initially she told the triage PCT while getting vitals that her symptoms were likely due to her MS infusion yesterday. When I asked her about her symptoms they have been going on much longer than that as outlined above. Initially when she was asked about concerns for Covid she stated no then she stated that a family member has Covid, was put on a 2-week quarantine which just ended. Initially she said she had not been around her then she states she was around her last weekend. Patient alert, oriented, no acute distress noted, no respiratory distress noted. I have greeted and performed a rapid initial assessment of this patient. A comprehensive ED assessment and evaluation of the patient, analysis of test results and completion of the medical decision making process will be conducted by additional ED providers. I have specifically instructed the patient or family members with the patient to immediately return to any nursing staff should anything change in the patient's condition or with their chief complaint. TRAVEL OUTSIDE OF THE [place] IN LAST 30 DAYS: No - Related Data Allergies/Adverse Reactions: oxycodone HCl [From Percocet] Allergy (Intermediate, Verified 07/02/18 12:09) VOMITING Past Medical History - Past Medical History Cardiac Medical History: Denies: Hx Coronary Artery Disease, Hx DVT, Hx Heart Attack, Hx Hypertension, Hx Pulmonary Embolism, Hx Heart Murmur Pulmonary Medical History: Denies: Hx Asthma, Hx Bronchitis, Hx COPD, Hx Pneumonia Neurological Medical History: Denies: Hx Cerebrovascular Accident, Hx Seizures Renal/ Medical History: Reports: Hx Ovarian Cysts. Denies: Hx Peritoneal Dialysis GI Medical History: Reports: Hx Gastroesophageal Reflux Disease. Denies: Hx Hiatal Hernia, Hx Ulcer Musculoskeltal Medical History: Denies Hx Arthritis, Reports Hx Multiple Sclerosis, Reports Hx Musculoskeletal Trauma Psychiatric Medical History: Reports: Hx Attention Deficit Hyperactivity Disorder, Hx Bipolar Disorder, Hx Depression Denies: Hx Post Traumatic Stress Disorder, Hx Schizophrenia Infectious Medical History: Denies: Hx HIV Past Surgical History: Reports: Hx Section, Hx Cholecystectomy, Hx Hysterectomy. Denies: Hx Pacemaker - Immunizations Hx Diphtheria, Pertussis, Tetanus Vaccination: Yes - 2011 Physical Exam - Vital signs Vitals: Temp Pulse Resp BP Pulse Ox 98.3 F 65 18 121/81 99 03/05/20 11:59 03/05/20 11:59 03/05/20 11:59 03/05/20 11:59 03/05/20 11:59 Course - Vital Signs Vital signs: Temp Pulse Resp BP Pulse Ox 98.3 F 65 18 121/81 99 03/05/20 11:59 03/05/20 11:59 03/05/20 11:59 03/05/20 11:59 03/05/20 11:59 Doctor's Discharge - Discharge Referrals: DOLORES READ PA-C [Primary Care Provider] - Follow up as needed
--- NOTE | 2020-03-05 12:44 | RADIOLOGY REPORT (SQ) ---
EXAM DESCRIPTION: CHEST SINGLE VIEW IMAGES COMPLETED DATE/TIME: 03/05/2020 12:35 pm REASON FOR STUDY: shortness of breath COMPARISON: 01/10/2020. EXAM PARAMETERS: NUMBER OF VIEWS: One view. TECHNIQUE: Single frontal radiographic view of the chest acquired. RADIATION DOSE: NA LIMITATIONS: None. FINDINGS: LUNGS AND PLEURA: No opacities, masses or pneumothorax. No pleural effusion. MEDIASTINUM AND HILAR STRUCTURES: No masses. Contour normal. HEART AND VASCULAR STRUCTURES: Heart normal in size. Normal vasculature. BONES: No acute findings. HARDWARE: None in the chest. OTHER: No other significant finding. IMPRESSION: NO ACUTE RADIOGRAPHIC FINDING IN THE CHEST. TECHNICAL DOCUMENTATION: JOB ID: [id number] 2010 [employer]- All Rights Reserved Reading location - IP/workstation name: [email or web address]
[2020-03-05 13:20] LABS: A TYPE INFLUENZA AG NEGATIVE (NEGATIVE); B INFLUENZA AG NEGATIVE (NEGATIVE)
--- NOTE | 2020-03-05 14:36 | ER Document Report ---
ED General - General Chief Complaint: Shortness Of Breath Stated Complaint: SHORTNESS OF BREATH/CHILLS/FEVERISH/TIRED Time Seen by Provider: 03/05/20 12:05 Primary Care Provider: DOLORES READ PA-C [Primary Care Provider] - Follow up as needed Mode of Arrival: Ambulatory Information source: Patient Notes: Patient is a 29-year-old female history of MS currently on injections for same being in today with body aches, cough, chills, and perceived shortness of breath. She has no lung history. She does not smoke. She has no chest pain. No significant contacts for coronavirus. TRAVEL OUTSIDE OF THE [place] IN LAST 30 DAYS: No - Related Data Allergies/Adverse Reactions: oxycodone HCl [From Percocet] Allergy (Intermediate, Verified 07/02/18 12:09) VOMITING Home Medications: navidigil, pantoprazole, rigzulti, lyrica, benztroine, trentillix, atenolol, vit d, Past Medical History - General Information source: Patient - Social History Smoking Status: Never Smoker Chew tobacco use (# tins/day): No Frequency of alcohol use: None Drug Abuse: None Family History: Reviewed & Not Pertinent - Past Medical History Cardiac Medical History: Denies: Hx Coronary Artery Disease, Hx DVT, Hx Heart Attack, Hx Hypertension, Hx Pulmonary Embolism, Hx Heart Murmur Pulmonary Medical History: Denies: Hx Asthma, Hx Bronchitis, Hx COPD, Hx Pneumonia Neurological Medical History: Denies: Hx Cerebrovascular Accident, Hx Seizures Renal/ Medical History: Reports: Hx Ovarian Cysts. Denies: Hx Peritoneal Dialysis GI Medical History: Reports: Hx Gastroesophageal Reflux Disease. Denies: Hx Hiatal Hernia, Hx Ulcer Musculoskeletal Medical History: Denies Hx Arthritis, Reports Hx Multiple Sclerosis, Reports Hx Musculoskeletal Trauma Psychiatric Medical History: Reports: Hx Attention Deficit Hyperactivity Disorder, Hx Bipolar Disorder, Hx Depression Denies: Hx Post Traumatic Stress Disorder, Hx Schizophrenia Infectious Medical History: Denies: Hx HIV Past Surgical History: Reports: Hx Section, Hx Cholecystectomy, Hx Hysterectomy. Denies: Hx Pacemaker - Immunizations Hx Diphtheria, Pertussis, Tetanus Vaccination: Yes - 2011 Review of Systems - Review of Systems Notes: Constitutional: No fevers. Positive for chills EENT: No eye redness. No eye pain. No ear pain. No sore throat. Cardiovascular: No chest pain. No palpitations. Respiratory: Positive for cough, positive for shortness of breath Gastrointestinal: No abdominal pain. No nausea, vomiting, or diarrhea. Genitourinary: Atraumatic. No lesions. No pain. No discharge. Musculoskeletal: Atraumatic. No swelling. No deformities. Skin: No rash or lesions. Lymphatic: No swollen lymph nodes. Neurologic: No headache. No syncope. Psychiatric: No suicidal or homicidal ideation. Physical Exam - Vital signs Vitals: Temp Pulse Resp BP Pulse Ox 98.3 F 65 18 121/81 99 03/05/20 11:59 03/05/20 11:59 03/05/20 11:59 03/05/20 11:59 03/05/20 11:59 - Notes Notes: General: Well-developed, well-nourished. In no acute distress. Non-toxic appearing. Cardiac: Well-perfused. Regular rate and rhythm. No murmurs, rubs, or gallops. Pulmonary: No respiratory distress. No cyanosis. Bilateral lung camp are clear to auscultation. Abdominal: Non-distended. Non-rigid. Bowels sounds are present in all four quadrants. No guarding or rebound. HEENT: Head is atraumatic. Conjunctivae not reddened. No tearing. PERRL. EOMI. Orbits atraumatic. No periorbital swelling or erythema. Oropharynx is without erythema, swelling, or exudates. Neck: Supple. No adenopathy. No meningismus. Dermatologic: Warm with good turgor. No rash. Atraumatic. Chest: Atraumatic. No chest wall tenderness to palpation. Musculoskeletal: Moves all extremities well. No range of motion deficits. no muscular or joint tenderness. No paraspinal muscle tenderness. no midline spinal tenderness or step-off. Genitourinary: Examination deferred Neurologic: No gross neurologic deficits. Psychiatric: Normal mood. Course - Re-evaluation Re-evalutation: 03/05/20 14:32 Patient does not show any signs of distress when she talks. Her exam is completely normal. Vital signs are normal. Given her somewhat immune compromised state because of her MS drugs, will large her on azithromycin daily as well as encouraged her to take vitamin D and zinc. We will give her a pre scription for albuterol metered-dose inhaler in case she starts feeling more short of breath. She is aware that she needs to stay at home until she finds out the results of her coronavirus test. - Vital Signs Vital signs: Temp Pulse Resp BP Pulse Ox 98.3 F 65 18 121/81 99 03/05/20 11:59 03/05/20 11:59 03/05/20 11:59 03/05/20 11:59 03/05/20 11:59 - Diagnostic Test Radiology reviewed: Reports reviewed Discharge - Discharge Clinical Impression: Person under investigation for COVID-19 Upper respiratory infection Qualifiers: URI type: unspecified URI Qualified Code(s): J06.9 - Acute upper respiratory infection, unspecified Condition: Good Disposition: HOME, SELF-CARE Instructions: COVID-19 Guidance for Persons Under Investigation, Acetaminophen, Fever ([facility]), Upper Respiratory Illness ([facility]), Viral Syndrome ([facility]) Prescriptions: Azithromycin 500 mg PO DAILY 5 Days #5 tablet Albuterol Sulfate [Proair Hfa Inhalation Aerosol 8.5 gm Mdi] 2 puff IH Q4 PRN #1 mdi PRN Reason: Referrals: MADHAV NAVARRO MD [ACTIVE STAFF] - Follow up as needed
[2020-03-05 14:52] VITALS: BP 114/75
== END 2020-03-05 14:50 | disposition home or self-care (01) ==
LOC: ER 11:54
DX: J06.9 Acute upper respiratory infection, unspecified (principal); R06.02 Shortness of breath; R05 Cough; G35 Multiple sclerosis; K21.9 Gastro-esophageal reflux disease without esophagitis; F32.9 Major depressive disorder, single episode, unspecified; Z79.899 Other long term (current) drug therapy; Z88.6 Allergy status to analgesic agent; Z88.5 Allergy status to narcotic agent; Z20.828 Contact with and (suspected) exposure to other viral communicable diseases
CPT/HCPCS: 99284; 87635; 87804; 71045; C9803

== ENCOUNTER → 2020-03-18 | Outpatient (CLI) | payer MEDICAID ==
[2020-03-18 11:13] LABS: ABSOLUTE EOSINOPHILS # (AUTO) 0.1 10^3/uL (0.0-0.6); ABSOLUTE LYMPHOCYTES (AUTO) 1.4 10^3/uL (0.5-4.7); ABSOLUTE MONOCYTES (AUTO) 0.4 10^3/uL (0.1-1.4); ABSOLUTE NEUT (AUTO) 3.3 10^3/uL (1.7-8.2); BASOPHILS % (AUTO) 0.6 % (0-2); EOSINOPHILS % (AUTO) 1.8 % (0-6); HEMATOCRIT 37.4 % (36.0-47.0); HEMOGLOBIN 13.2 g/dL (12.0-15.5); LYMPHOCYTES % (AUTO) 26.4 % (13-45); MEAN CORPUSCULAR HGB CONC 35.4 g/dL (32.0-36.0); MEAN CORPUSCULAR VOLUME 82 fl (80-97); MONOCYTES % (AUTO) 7.5 % (3-13); PLATELET COUNT 293 10^3/uL (150-450); RED BLOOD COUNT 4.56 10^6/uL (3.72-5.28); RED CELL DISTRIBUTION WIDTH 15.5 % (11.5-14.0); SEGMENTED NEUTROPHILS % (AUTO) 63.7 % (42-78); TOTAL CELLS COUNTED % (AUTO) 100 %; WHITE BLOOD COUNT 5.2 10^3/uL (4.0-10.5)
[2020-03-18 11:30] LABS: IRON(TIBC) 50.5 ug/dL (37-170)
[2020-03-18 11:58] LABS: ERYTHROCYTE SEDIMENTATION RATE 26 mm/hr (0-20)
== END ==
LOC: OD 08:52
PROVIDERS: ATTEND Psychiatry & Neurology Neurology
DX: G35 Multiple sclerosis (principal); D75.9 Disease of blood and blood-forming organs, unspecified
CPT/HCPCS: 36415; 83540; 83550; 85025; 85652